=== PATIENT | female | born 1995 | race Two or more races ===

== ENCOUNTER 2019-01-07 16:23 | Emergency (ER) | payer SELFPAY ==
[~2019-01-07] VITALS: Ht 167.6 cm; Wt 70.0 kg
[2019-01-07] MEDS ORDERED: ACETAMINOPHEN 325MG TABLET PO ONE (18:45)
[2019-01-07 19:40] VITALS: BP 127/76
== END 2019-01-07 19:40 | disposition home or self-care (01) ==
LOC: ER 16:23
DX: L03.116 Cellulitis of left lower limb (principal); R60.0 Localized edema; W19.XXXA Unspecified fall, initial encounter; Y93.89 Activity, other specified; Y92.89 Other specified places as the place of occurrence of the external cause; Y99.8 Other external cause status
CPT/HCPCS: 73590; 73610; 73630; 93971; 99284